=== PATIENT | female | born 1965 | race Caucasian/White ===

== ENCOUNTER → 2018-06-01 07:10 | Outpatient (CLI) | payer OTHER, SELFPAY ==
--- NOTE | 2018-06-01 07:15 | NM_ITS ---
History and Indications: Diabetes, hyperlipidemia, family history, shortness of breath, palpitations fatigue and abnormal EKG. Procedure: Patient exercised on Jairo protocol 6 metastases, resting heart rate was 85 bpm resting blood pressure 155/87, with exercise maximum heart rate achieved was 1 52 bpm which is greater than 85% of the maximum predicted heart rate and a blood pressure was 196/84. Test was stopped due to shortness of breath patient denied any complained of chest pain. Patient has adequate exercise capacity achieved 7.0mets of workload on treadmill, the blood pressure response to exercise was adequate. Electrocardiogram: Resting electrocardiogram showed sinus rhythm, with exercise there is less than 1.[address] segment depression noted from the baseline EKG. The EKG portion of the exercise Myoview is negative for ischemia. Cardiac stress and resting SPECT images: Cardiac stress and resting SPECT images were obtained using technetium 99 Myoview 31.4 mCi at stress and 10.1 mCi at rest. Gated SPECT further analysis of segmental wall motion and calculation of the ejection fraction also done. Cardiac stress and resting SPECT images show a mild fixed defect in the anterior wall with normal contractility in the gated SPECT is likely secondary to soft tissue attenuation, no reversible ischemia seen, computer derived ejection fraction is over 65% with no regional wall motion abnormality, right ventricle is normal size and contractility. Conclusion: 1. The EKG portion of the exercise Myoview is negative for ischemia, patient has adequate exercise capacity achieved 7mets of workload on treadmill, the blood pressure response to exercise was adequate, test was started due to shortness of breath patient denied any complained of chest pain. 2. No scintigraphic evidence of reversible ischemia seen at this level of exercise, computer derived ejection fraction is over 65% with no regional wall motion abnormality, right ventricle is normal size and contractility. 3. Normal exercise Myoview study.
--- NOTE | 2018-06-01 10:17 | HMH.ITSHM ---
fenofibrate metoprolol metformin spirivac omeprazole diazepam aspirin livalol loratadine
== END ==
PROVIDERS: PCP Family Medicine; Visit Provider Internal Medicine
DX: R07.9 Chest pain, unspecified (principal); R94.31 Abnormal electrocardiogram [ECG] [EKG]; C34.90 Malignant neoplasm of unspecified part of unspecified bronchus or lung; E11.9 Type 2 diabetes mellitus without complications; E78.5 Hyperlipidemia, unspecified; I10 Essential (primary) hypertension; J44.9 Chronic obstructive pulmonary disease, unspecified; K21.9 Gastro-esophageal reflux disease without esophagitis; R00.2 Palpitations; R06.00 Dyspnea, unspecified; R53.83 Other fatigue; Z87.891 Personal history of nicotine dependence; Z90.2 Acquired absence of lung [part of]; E11.8 Type 2 diabetes mellitus with unspecified complications; E78.4 Other hyperlipidemia; K44.9 Diaphragmatic hernia without obstruction or gangrene; R06.09 Other forms of dyspnea; R07.89 Other chest pain
CPT/HCPCS: 78452; 93017; A9502

== ENCOUNTER → 2019-06-21 10:01 | Outpatient (CLI) | payer OTHER, SELFPAY ==
--- NOTE | 2019-06-21 10:02 | CA_ITS ---
APPROVED REPORT EXAM: Comprehensive 2D, Doppler, and color-flow Echocardiogram Rack Puller: Jacquelyn Dozier RVT Ht: 5 ft 2 in Wt: 164lbs BSA: 1.76 BP: 134/78 mmHg Indications: MVP, COPD, Shortness of Breath, Diabetes, Palpitations, Fatigue, Hyperlipidemia, Hypertension 2D Dimensions LVOT 2.20 cm (M/F) 1.5-2.5 M-Mode Dimensions RVDd 2.50 cm (0.9-2.6) LA Diam 3.70 cm (1.9-4.0) LVDd 4.60 cm (3.5-5.7) Ao Diam 2.60 cm (2.0-3.7) LVDs 2.30 cm (3.5-5.7) AV Cusp 1.80 cm (1.5-2.6) IVSd 1.00 cm (0.6-1.1) PWd 0.80 cm (0.6-1.1) EF (Teich) 81.40% FS 50.00% EDV (Teich) 97.30 mL ESV (Teich) 18.10 mL LV Diastology E/A Ratio 1.0 MED E' 4.97 (< 7 cm/sec) E'/MED E' Ratio 20.30 (>14) LAT E' 9.16 (<10 cm/sec) E/LAT E' Ratio 11.00 (>14) Aortic Valve AoV Peak Omid. 117.00 (50-130 cm/s) AO Peak GR. 5.00 mmHg Mitral Valve MV E Max Omid. 101.00 (40-130 cm/s) MV A Velocity 102.00 (40-130 cm/s) E/A Ratio 1.00 Pulmonary Valve PA Accel Time 158.00 (>120 msec) Tricuspid Valve TR P. Velocity 229.00 cm/s Left Ventricle Left atrium is mildly enlarged, left ventricle is normal size, mild concentric left ventricular hypertrophy, visually estimated ejection fraction 55% with no regional wall motion abnormality, grade 1 diastolic dysfunction seen without tissue Doppler evidence of raise left atrial pressure. Right Ventricle Right atrium and right ventricular mildly enlarged with normal contractility. Aortic Valve Aortic valve is minimally thickened and fibrosed, there is no aortic stenosis aortic insufficiency. Mitral Valve Mitral valve is grossly normal, there is mild mitral regurgitation. Tricuspid Valve Tricuspid valve is grossly normal, there is mild tricuspid regurgitation, tricuspid regurgitation jet velocity is inadequate for calculation of the right ventricular systolic pressure. Pulmonic Valve Pulmonic valve is poorly visualized. Great Vessels Aortic root is normal size. Pericardium No significant pericardial effusion noted. Conclusion 1. Biatrial enlargement, normal left ventricular size, mild concentric left ventricular hypertrophy, visually estimated ejection fraction 55% with no regional wall motion abnormality, grade 1 diastolic dysfunction seen without tissue Doppler evidence of raise left atrial pressure. 2. Mildly enlarged right ventricle with normal contractility. 3. Mild mitral and tricuspid regurgitation 4. No significant pericardial effusion noted. Electronically signed by : Gerhard Nunez, 06/21/2019 14:23:17
== END ==
PROVIDERS: PCP Family Medicine; Visit Provider Nurse Practitioner Family
DX: I10 Essential (primary) hypertension (principal); I34.1 Nonrheumatic mitral (valve) prolapse; R53.83 Other fatigue
CPT/HCPCS: 93306

== ENCOUNTER → 2020-09-09 07:50 | Outpatient (CLI) | payer OTHER, SELFPAY ==
--- NOTE | 2020-09-09 | CA_ITS ---
APPROVED REPORT Exam: Exercise Treadmill Technologist: Flora Dominguez, Ht: 5 ft 2 in Wt: 168 lbs BSA: 1.78 m2 HR: 91 bpm BP: 149/88 mmHg Rhythm: NSR,LOW VOLTAGE QRS Medical History Medical History: HTN, Hyperlipidemia, Diabetic ??? Noninsulin Medications: Omeprazole,,,,, Metoprolol,,,,, Asa,,,,, Metformin,,,,, Diazepam,,,,, SyMBICORT,,,,, Tramadol,,,,, Calcium,,,,, Famotidine,,,,, FeNOfibrate,,,,, LoraTADINE,,,,, Ezetimbe,,,,, Cardiac Risk Factors: HTN, Hyperlipidemia, Diabetes (non-insulin), FHX of CAD Stress Test Details Test: Jairo HR Resting HR: 101 bpm Max Heart Rate (APMHR): 164 bpm Max HR Achieved: 140 bpm Target HR (85% APMHR): 139 bpm % of APMHR: 85 Recovery HR: 123 bpm BP Resting BP: 149.0/88.0 mmHg Max BP: 190.0/94.0 mmHg Recovery BP: 190.0/84.0 mmHg ECG Resting ECG: NSR,LOW VOLTAGE QRS Clinical Exercise duration: 05:30 min Highest Stage Achieved: Exercise capacity: 7.0 METs Stress ECG Conclusion PATIENT EXERCISED TO EXHAUSTION WHICH WAS 5:30 ON JAIRO PROTOCOL. MAX HEART RATE 140 BPM WHICH IS 85% OF PM FOR AGE. MAX BP 190/84. METS = 7.0. TEST STOPPED DUETO SOA. NO CHEST PAIN. RARE FUSION BEAT. NORMAL ST RESPONSE TO EXERCISE. NORMAL GXT. MYOVIEW IMAGES REPORTED SEPARATELY. Test Summary REST . . . . . . . Standing REST . . . . . . . Sitting REST 05:43 0.0 0.0 101 . 149/ 88 . . Stage 1 01:00 10.0 1.7 113 . . . . Stage 1 02:00 10.0 1.7 120 . . . . Stage 1 03:00 10.0 1.7 123 . 190/ 94 . . Stage 2 01:00 12.0 2.5 133 . . . . Stage 2 . . . . . . . Cardiolite injected Stage 2 02:00 12.0 2.5 139 . . . . Stage 2 02:30 12.0 2.5 139 . . . Stop exercise at 05:30 RECOVERY 01:00 0.0 0.0 122 . 190/ 84 . . RECOVERY 02:00 0.0 0.0 112 . 190/ 84 . . RECOVERY 03:00 0.0 0.0 101 . 139/ 78 . . RECOVERY 04:00 0.0 0.0 99 . 132/ 77 . . RECOVERY 05:00 0.0 0.0 96 . 130/ 80 . . RECOVERY 05:18 0.0 0.0 102 . 130/ 80 . . Electronically signed by : Gerhard Nunez, 09/10/2020 12:28:26
--- NOTE | 2020-09-09 07:50 | NM_ITS ---
APPROVED REPORT Exam: Nuclear Stress Test Indication: HTN, D.M., FM HX, C.P., SOB, PALPITATIONS, ABN EKG Patient Location: Outpatient Stress Tech: Era Dominguez [place] Tech:Sylvia Mann, ARRT RT (R)(N)(M) Ht: 5 ft 2 in Wt: 168 lbs Bra Size: C HR: 91 bpm BP: 149/88 mmHg BSA: 1.78 m2 BMI: 30.7 History: HTN, D.M., FM HX, C.P., SOB, PALPITATIONS, ABN EKG Procedure: Patient exercised on Jairo protocol 5:30 minutes and sec, resting heart rate 91 bpm, resting blood pressure 149/88 mmHg, with exercise maximum heart rate achived was 140 bpm which is 85 % of the maximum predicted heart rate and blood pressure was 199/94 mmHg. Test was stopped due to SOB, FATIGUE. Patient denied any complaint of chest pain. Patient has Adequate exercise capacity, achieved 7.0 METs of workload on treadmill, the blood pressure response to exercise was Adequate. Electrocardiogram Resting electrocardiogram showed sinus rhythm, with exercise there is less than 1.[address] segment depression noted from the baseline EKG. The EKG portion of the exercise Myoview is negative for ischemia. Cardiac Stress and Resting SPECT Images: Cardiac Stress and Resting SPECT images were obtained using technetium 99m Myoview 31.6 mCi stress and 10.44 mCi at rest. Gated SPECT for analysis of segmental wall motion and calculation of the ejection fraction also done. Prone images were also obtained. Cardiac stress and resting SPECT images show uniform myocardial activity without segmental perfusion abnormality, computer derived ejection fraction is over 65% with no regional wall motion abnormality, right ventricle is normal size and contractility. Conclusion: 1. The EKG portion of the exercise Myoview is negative for ischemia, patient has adequate exercise capacity achieved 7 mets of workload on treadmill, the blood pressure response to exercise was adequate, there was no exercise-induced chest discomfort. 2. No scintigraphic evidence of reversible ischemia seen, computer derived ejection fraction is over 65% with no regional wall motion abnormality, right ventricle is normal size and contractility. 3. Normal exercise Myoview study. Electronically signed by : Gerhard Nunez, 09/10/2020 12:32:11
[2020-09-09 12:16] LABS: Anion Gap 13.5 mEq/L (5-15); Blood Urea Nitrogen 18 mg/dl (7-17); Calcium 10.2 mg/dl (8.4-10.2); Carbon Dioxide 28 mmol/L (22.0-30.0); Chloride 100 mmol/L (98-107); Estimated Glomerular Filt Rate 74 ml/min (>60); GFR (African American) 90 ML/MIN (>60); Glucose 127 mg/dl (74-100); Potassium 4.5 mmoL/L (3.5-5.1); Sodium 137 mmol/L (136-145)
== END ==
PROVIDERS: PCP Family Medicine; Visit Provider Physician Assistant
DX: R07.9 Chest pain, unspecified (principal); R94.31 Abnormal electrocardiogram [ECG] [EKG]; C34.90 Malignant neoplasm of unspecified part of unspecified bronchus or lung; R53.83 Other fatigue; E11.69 Type 2 diabetes mellitus with other specified complication; E78.2 Mixed hyperlipidemia; I10 Essential (primary) hypertension; J44.9 Chronic obstructive pulmonary disease, unspecified; K21.9 Gastro-esophageal reflux disease without esophagitis; K44.9 Diaphragmatic hernia without obstruction or gangrene; Z90.2 Acquired absence of lung [part of]
CPT/HCPCS: 36415; 78452; 80048; 93017; A9502

== ENCOUNTER → 2021-09-16 10:41 | Outpatient (CLI) | payer OTHER, SELFPAY | PROVIDERS: Visit Provider Nurse Practitioner | DX: Z20.822 Contact with and (suspected) exposure to COVID-19 (principal) | CPT/HCPCS: C9803; U0003; U0005 ==

== ENCOUNTER → 2022-07-21 11:15 | Outpatient (CLI) | payer OTHER, SELFPAY ==
--- NOTE | 2022-07-21 | CA_ITS ---
APPROVED REPORT Exam: Pharmacologic Technologist: Genie Huber, Ht: 5 ft 2 in Wt: 168 lbs BSA: 1.78 m2 HR: 78 bpm BP: 139/83 mmHg Rhythm: NSR, low voltage QRS Indications: SOA Medical History Medications: Aspirin,,,,, Metoprolol,,,,, Metformin,,,,, Diazepam,,,,, Buspirone,,,,, Duoneb,,,,, Tramadol,,,,, Famotidine,,,,, JaRDiance,,,,, Ezetimibe,,,,, BREztri,,,,, FeNOfibrate nanocrystallized,,,,, Cardiac Risk Factors: HTN, Diabetes (non-insulin), Smoking Stress Test Details Test: LEXISCAN HR Resting HR: 88 bpm Max Heart Rate (APMHR): 162.622958 bpm Max HR Achieved: 102 bpm Target HR (85% APMHR): 137.846651 bpm % of APMHR: 62.96 Recovery HR: 90 bpm BP Resting BP: 139/83 mmHg Max BP: 157/91 mmHg Recovery BP: 150.0/88.0 mmHg ECG Resting ECG: NSR, low voltage QRS Clinical Exercise duration: 04:01 min Highest Stage Achieved: Exercise capacity: 1.0 METs Stress ECG Conclusion During lexiscan pt experinced mild SOA and mild head discomfort. No arrhythmias noted. No significant ST changes. Unremarkable lexiscan stress. Myoview images reported separately. Test Summary REST . . . . . . . Sitting REST 03:08 . . 88 . 139/ 83 . . Stage 1 01:00 . . 101 . . . . Stage 2 01:00 . . 97 . 151/ 91 . . Stage 3 01:00 . . 97 . 157/ 91 . . Stage 4 01:00 . . 95 . 155/ 96 . . Stage 4 01:01 . . 96 . 155/ 96 . Stop exercise at 04:01 RECOVERY 01:00 . . 93 . . . . RECOVERY 02:00 . . 84 . 150/ 88 . . RECOVERY 03:00 . . 90 . 135/ 87 . . RECOVERY 03:45 . . 91 . 150/ 90 . . Electronically signed by : Gerhard Nunez MD 07/22/2022 10:45:19
--- NOTE | 2022-07-21 11:16 | NM_ITS ---
APPROVED REPORT Exam: Nuclear Stress Test Indication: DM, FM HX, SOB, PALPITATIONS, FATIGUE Patient Location: Outpatient Stress Tech: Genie RODRIGUEZ Tech:Teresa Robert SCOTTYNasir RT(R)(N) Ht: 5 ft 2 in Wt: 170 lbs Bra Size: C HR: 88 bpm BP: 139/83 mmHg BSA: 1.78 m2 TID: 1.14 BMI: 31.0 History: DM, FM HX, SOB, PALPITATIONS, FATIGUE Procedure: Patient received a 0.4 mg of intravenous Lexiscan, resting heart rate 88 bpm, resting blood pressure 139/83 mmHg, with Lexiscan maximum heart rate achived was 101 bpm which is Less than 85 % of the maximum predicted heart rate and blood pressure was 151/91 mmHg. With Lexiscan, patient denied any complaint of chest pain. Electrocardiogram Resting electrocardiogram showed sinus rhythm, with Lexiscan there is less than 1.[address] segment depression noted from the baseline EKG. The EKG portion of the Lexiscan is nondiagnostic. Cardiac Stress and Resting SPECT Images: Cardiac Stress and Resting SPECT images were obtained using technetium 99m Myoview 30.4 mCi stress and 10.12 mCi at rest. Gated SPECT for analysis of segmental wall motion and calculation of the ejection fraction also done. Cardiac stress and resting SPECT images show uniform myocardial activity without segmental perfusion abnormality, computer derived ejection fraction is over 65% with no regional wall motion abnormality, right ventricle is normal size and contractility. Conclusion: 1. The EKG portion of the Lexiscan is nondiagnostic. 2. No scintigraphic evidence of reversible ischemia seen, computer derived ejection fraction over 65% with no regional wall motion abnormality, right ventricle is normal size and contractility. 3. Normal Lexiscan Myoview study. Electronically signed by : Gerhard Nunez MD 07/22/2022 10:47:47
== END ==
PROVIDERS: PCP Family Medicine; Visit Provider Nurse Practitioner
DX: R06.00 Dyspnea, unspecified (principal); R07.9 Chest pain, unspecified; I10 Essential (primary) hypertension; E78.2 Mixed hyperlipidemia
CPT/HCPCS: 78452; 93017; A9502; J2785

== ENCOUNTER → 2023-01-17 12:34 | Outpatient (CLI) | payer OTHER, SELFPAY ==
--- NOTE | 2023-01-17 12:42 | XR_ITS ---
FINAL REPORT CLINICAL HISTORY: TWISTED ANKLE 2WKS AGO,BRUISING FINDINGS: RIGHT ANKLE: 3 views of the right ankle were obtained. There is no acute fracture or dislocation. There is a small to moderate Ashley deformity. The mortise is intact. There is soft tissue swelling about the ankle, particularly laterally. IMPRESSION: Soft tissue swelling with no acute fracture Reviewed, Interpreted and Dictated by Jarvis Andrew MD Transcribed by Janay Phoenix Authenticated and [facility]
== END ==
PROVIDERS: PCP Family Medicine; Visit Provider Family Medicine
DX: M25.572 Pain in left ankle and joints of left foot (principal)
CPT/HCPCS: 73600

== ENCOUNTER → 2023-07-20 09:47 | Outpatient (CLI) | payer OTHER, SELFPAY | PROVIDERS: PCP Family Medicine; Visit Provider Internal Medicine | DX: R06.00 Dyspnea, unspecified (principal); R00.2 Palpitations; I10 Essential (primary) hypertension; E78.5 Hyperlipidemia, unspecified; E11.9 Type 2 diabetes mellitus without complications | CPT/HCPCS: 93270 ==

== ENCOUNTER → 2023-08-29 09:38 | Outpatient (CLI) | payer OTHER, SELFPAY ==
--- NOTE | 2023-08-29 09:38 | CA_ITS ---
APPROVED REPORT EXAM: Comprehensive 2D, Doppler, and color-flow Echocardiogram Online Editor: Cristiana Case CRT Ht: 5 ft 2 in Wt: 163lbs BSA: 1.75 BP: 148/88 mmHg Indications: COPD, Shortness of Breath, Diabetes, Palpitations, Fatigue, Hyperlipidemia, Hypertension/HDD, SVT 2D Dimensions Left Atrium 3.83 cm LA Volume 19.70 mL LVOT 1.89 cm (M/F) 1.5-2.5 LA Volume Index 11.30 mL/m2 (M/F) 16-34 EF AP4 62.10 % GL Strain -18.6 % M-Mode Dimensions RVDd 2.47 cm (0.9-2.6) LVDd 4.40 cm (3.5-5.7) Ao Diam 3.35 cm (2.0-3.7) LVDs 2.81 cm (3.5-5.7) IVSd 1.48 cm (0.6-1.1) PWd 0.80 cm (0.6-1.1) EF (Teich) 66.00% FS 36.10% EDV (Teich) 87.70 mL TAPSE 1.91 (<1.7) ESV (Teich) 29.80 mL LV Diastology E Decel Time 189 (160-240 msec) E/A Ratio 0.86 MED E' 6.2 (>= 7 cm/sec) MED A' 9.50 cm/s E'/MED E' Ratio 13.66 (<= 14) LAT E' 6.5 (>= 10 cm/sec) LAT A' 9.40 cm/s E/LAT E' Ratio 13.03 (<= 14) Aortic Valve AoV Peak Omid. 121.0 (50-130 cm/s) AO Peak GR. 5.90 mmHg Mitral Valve MV E Max Omid. 85.0 (40-130 cm/s) MV A Velocity 98.0 (40-130 cm/s) E/A Ratio 0.86 MV Decel. Time 189 (160-240 ms) Tricuspid Valve TR P. Velocity 220.00 cm/s RAP Estimate 10.00 mmHg RVSP 29.30 mmHg Left Ventricle The left ventricle is normal size. The left ventricular systolic function is normal. The left ventricular ejection fraction is within the normal range. There is normal left ventricular wall thickness. There is normal LV segmental wall motion. The left ventricular diastolic function is normal. LVEF is 55%. Right Ventricle The right ventricle is normal size. The right ventricular systolic function is normal. Atria The left atrium size is normal. The right atrium size is normal. There is no Doppler evidence of interatrial shunt. Aortic Valve The aortic valve opens well. There is no aortic valvular stenosis. No aortic regurgitation is present. Mitral Valve The mitral valve is normal in structure. No evidence of mitral valve stenosis. There is no mitral valve regurgitation noted. Tricuspid Valve The tricuspid valve leaflets are thin and pliable. Trace tricuspid regurgitation. RVSP is 20-25 mmHg. Pulmonic Valve The pulmonary valve is normal in structure. Trace pulmonic regurgitation. Great Vessels The aortic root is normal in size. The ascending aorta is normal in size. IVC is normal in size and collapses >50% with inspiration. Pericardium There is no pericardial effusion. Other Information Study Quality: Fair Conclusion Normal biventricular systolic function. No significant valvular stenosis or regurgitation. Electronically signed by : Shelbi Rodriguez MD 08/30/2023 00:23:57
[2023-08-29 11:51] LABS: Blood Urea Nitrogen 11 mg/dl (7-17); Estimated Glomerular Filt Rate 86 ml/min (>60); GFR (African American) 104 ML/MIN (>60)
== END ==
PROVIDERS: Internal Medicine; PCP Family Medicine; Visit Provider Physician Assistant
DX: I47.29 Other ventricular tachycardia (principal); E78.2 Mixed hyperlipidemia; R06.02 Shortness of breath
CPT/HCPCS: 36415; 82565; 84520; 93306

== ENCOUNTER 2023-09-20 08:41 | Outpatient (CLI) | payer OTHER, SELFPAY ==
[2023-09-20] VITALS (11 sets, daily range): BP systolic 100–150; BP diastolic 63–95; PULSE 64–76; RESP 16–19; TEMP 36.6; O2SAT 95–99; BMI 29.6
--- NOTE | 2023-09-20 09:00 | CT_ITS ---
APPROVED REPORT Medical Geneticist: CLINICAL INDICATION Chest Pain TECHNIQUE Image Acquisition: A 128 slice MDCT scanner ([employer]moce[employer] View) was used for data acquisition. A noncontrast coronary calcium scan was performed. A CT attenuation threshold of 130 Hounsfield units (HU) was used for the detection of calcium in contiguous voxels of 1 sq mm in area to be counted as individual lesions. Bolus tracking in the ascending aorta with a threshold of 180 HU was performed. Immediately afterwards, ECG synchronized cardiac CT was then performed from the cardiac base to apex using retrospective gating with ECG tube current modulation. A total of 85 mL of Isovue 370 mg/mL contrast medium was administered at 5 mL/sec followed by a saline flush using a biphasic injection protocol. A tube voltage of 120 KVp was used. The patient received the following medications prior to the cardiac CT. 100 mg of oral metoprolol 5 mg of intravenous metoprolol 0.8 mg of sublingual nitroglycerin The average heart rate at the time of acquisition was 72 bpm and regular. Image Reconstruction Transaxial images were reconstructed at 0.67 mm slide thickness. Data was reviewed interactively on an advanced workstation capable of 2 and 3-dimensional displays in all conventional reconstruction formats, including multiplanar reformations, maximum intensity projections, curved multiplanar reformations, and volume rendered reconstructions. When applicable, selected routine images describing the relevant coronary anatomy and pathology were saved and sent to PACS. Complications None Technical Quality Overall image quality was suboptimal due to significant motion. Additional HR-controlling medications could not be administered due to marginal BPs. Coronary artery opacification was suboptimal. Total DLP (Dose-Length Product) is 1205.4 mGy-cm. The reported value represents the total of one or more individual components during the CT acquisition of this date and at this time, and as such, the same value may appear in more than one CT report depending on the interpreting/reporting physicians. COMPARISON None FINDINGS CT Coronary Calcium Scoring LMA (Left Main Artery) = 0 LAD (Left Anterior Descending) = 18 LCX (Left Coronary Circumflex) = 81 RCA (Right Coronary Artery) = 209 Total Calcium Score = 308 using the AJ-130 method. The observed calcium score of 308 is at 86th percentile for subjects of the same age, sex, and race/ethnicity. The interpretation of the calcium heart score is based on the following continuum*: 0 = no calcified plaque detected (risk of coronary artery disease is very low ??? less than 5%) 1-10 = calcium detected in extremely minimal levels (risk of coronary diseases is still low ??? less than 10%) 11-100 = mild levels of plaque detected with certainty (mild or minimal narrowing of heart arteries is likely) 101-400 = definite,at least moderate levels of plaque detected (relatively high risk of a heart attack within 3-5 years) >401-999 = extensive levels of plaque detected (high risk of heart attack, high levels of vascular disease are present, high likelihood of at least one significant coronary narrowing) *The calcium heart score quantifies the burden of coronary calcification/plaque in the coronary arteries. The calcium heart score is not able to evaluate the presence or burden of non-calcified (i.e. soft) plaque. There is no identifiable calcification in the aortic valve, mitral annulus or mitral valve, pericardium, or myocardium. Coronary CT Angiography The coronary arterial system is right dominant. Quantitative Stenosis Grading: Left Main (LM): The left main originates normally from the left sinus of Valsalva. The LM bifurcates into the left anterior descending artery and left circumflex artery. The LM is patent with no evidence of atherosclerosis. Left Anterior Descending (LAD) and Diagonal Branches: The LAD gives off 3 diagonal branches. There is a mixed calcified/non-calcified plaque in the mid-LAD, involving the ostial second diagonal branch, with approximately 70-90% luminal stenosis. There is no evidence of LAD bridge. Left Circumflex (LCX) and Obtuse Marginals (OM): The LCX gives off 1 Obtuse Marginal (OM) branch. There is calcified plaque along the course of the LCX, but without significant luminal stenosis. Right Coronary Artery (RCA): The RCA originates normally from the right sinus of Valsalva. The RCA gives off a posterior descending artery (PDA) and posterolateral (PL) branches. There are multiple foci of mixed calcified/non-calcified plaque, with up to 50-70% luminal stenosis in the proximal segment. Of note, there is a segment in the mid-RCA that is not well visualized due to significant motion. Non-Coronary Cardiac Findings: Analysis of the left ventricular (LV) structure and function was performed after 3-D reconstruction of the LV from axial images, with user-corrected automatic contouring for assessment of LV volumes and user-defined reconstruction from oblique planes for measurement of 3-D cardiac structure and function. LVEDV: 113 mL LVESV: 41 mL SV: 72 mL LVEF: 63.5% -The left ventricle is normal in size with normal left ventricular systolic function. -There is no left atrial appendage filling defect. Two right pulmonary veins and two left pulmonary veins drain normally into the left atrium. -No pericardial thickening or calcification. -Central and branch pulmonary arteries in the [id number] are unremarkable. -Thoracic aorta within the visualized thoracic aortic-branches in the [id number] is unremarkable. Extracardiac Structures No significant extra-cardiac findings. IMPRESSION -Suboptimal study due to significant motion. -Presence of coronary calcification with an Agatston score = 308 using the AJ-130 method. -The observed calcium score of 308 is at 86th percentile for subjects of the same age, sex, and race/ethnicity. -Significant and likely flow-limiting atherosclerosis in the mid-LAD/D2 segment and the proximal RCA. -Of note, there is a segment in the mid-RCA that is not well visualized due to significant motion. -CAD-RADS 4A. Management recommendations per ACC/AHA guidelines*, as clinically appropriate. -No significant non-coronary cardiac findings in the visualized segments of the chest. *Recommendations: CAD RADS 0: Reassurance. Consider non-atherosclerotic causes of chest pain. CAD RADS 1: Consider non-atherosclerotic causes of chest pain. Consider preventive therapy and risk factor modification. CAD RADS 2: Consider non-atherosclerotic causes of chest pain. Consider preventive therapy and risk factor modification, particularly for patients with nonobstructive plaque in multiple segments. CAD RADS 3: Consider further functional testing. Consider symptom-guided anti-ischemic and preventive pharmacotherapy as well as risk factor modification per published guideline statements. CAD RADS 4A: Consider further functional testing or invasive coronary angiography with revascularization per published guideline statements. Consider symptom-guided anti-ischemic and preventive pharmacotherapy as well as risk factor modification per published guideline statements. CAD RADS 4B: Invasive coronary angiography recommended with revascularization per published guideline statements. Consider symptom-guided anti-ischemic and preventive pharmacotherapy as well as risk factor modification per published guideline statements. CAD RADS 5: Consider invasive angiography and/or viability assessment with revascularization per published guideline statements. Consider symptom-guided anti-ischemic and preventive pharmacotherapy as well as risk factor modification per published guideline statements. CRITICAL RESULT None COMMUNICATION Per this written report The coronary and cardiac findings of this CCTA were reviewed, reported, and signed by Jim Rodriguez MD ([employer]ipsaw Operator) Conclusion Electronically signed by : Shelbi Rodriguez MD 09/27/2023 12:34:30
[2023-09-20] MEDS: METOPROLOL TARTRATE 50MG TABLET 100 MG PO (09:20)
[2023-09-20 09:34] LABS: POC Glucose,Bedside 131 (70-110)
--- NOTE | 2023-09-20 09:45 | PC.NURSE ---
0924 when going over patient allergies, she stated that her Nurse at [facility] says that contrast makes her itch. Patient does not recall this. she states she is not allergic to contrast. verified with Blanche HAWKINS whom stated to go with what patient states and if she has any issues to call for further orders.
[2023-09-20] MEDS: METOPROLOL TARTRATE 5MG/5ML VIAL 5 MG IV (10:23)
[2023-09-20] MEDS: NITROGLYCERIN 0.4MG SL TABLET 0.800000000000000044 MG SL (10:46)
[2023-09-20] MEDS: SODIUM CHLORIDE 0.9% 10ML SYR (RAD ONLY) 10 ML IV (11:28)
[2023-09-20] MEDS: IOPAMIDOL-370 (76%);100ML BOTTLE 85 ML IV (11:28)
[2023-09-20] MEDS: 0.9 % SODIUM CHLORIDE 50 ML VIAL IV (11:28)
== END 2023-09-20 12:03 | disposition home or self-care (01) ==
PROVIDERS: PCP Family Medicine; Visit Provider Physician Assistant
DX: I47.29 Other ventricular tachycardia (principal); R94.31 Abnormal electrocardiogram [ECG] [EKG]
CPT/HCPCS: 75571; 75574; 82962; Q9967

== ENCOUNTER 2023-10-04 08:21 | Day surgery (SDC) | payer OTHER, SELFPAY ==
[2023-10-04] VITALS (14 sets, daily range): BP systolic 90–176; BP diastolic 62–101; PULSE 66–81; RESP 17–20; TEMP 36.9; O2SAT 91–96; BMI 29.8
--- NOTE | 2023-10-04 07:13 | IR_ITS ---
APPROVED REPORT Patient Location: Outpatient Physiotherapy Assistant: PEDRO Rodriguez RT (R) PROCEDURES Left heart catheterization Left ventriculogram Selective coronary angiogram INDICATION Abnormal Myoview, Angina pectoris Informed consent was obtained prior to the procedure. COMPLICATIONS NONE Estimated Blood Loss: LESS THAN 10 ML TECHNIQUE One percent lidocaine used to anesthetize the right anterior aspect of the wrist. The right radial artery was accessed via the Seldinger technique. A 6 Belgian sheath was placed in the right radial artery. 2.5 mg of Verapamil, 800 mcg of nitroglycerin, 1mg Lidocaine and 5000 U Heparin were given through the arterial sheath. The papa catheter was also used to perform left heart catheterization, left ventriculogram and selective coronary angiogram. At the end of the procedure the sheath was removed good hemostasis was achieved using Traclet band, patient was transferred to the postop holding area in stable condition. ANGIOGRAPHIC RESULTS The left main artery Normal The left anterior descending artery Has proximal to mid vessel 10 to 20% luminal irregularities directly adjacent to first diagonal artery which is widely patent. The remaining LAD is normal The circumflex artery Has proximal 10% luminal irregularities The right coronary artery Dominant with a mid vessel 20 to 30% stenosis The REINA ventriculogram reveals Normal 65% The left ventricular end-diastolic pressure 20 to 25 mmHg IMPRESSION Mild nonflow limiting coronary disease as described above Normal ejection fraction Elevated LVEDP consistent with HFpEF PLAN 1. Treatment of HFpEF with diuretics and weight loss as well as fluid restriction 2. Recommend sleep study Electronically signed by : Vinny Guerra MD 10/04/2023 10:20:42
[2023-10-04 08:58] LABS: Basophils # 0.1 K/mm3 (0-0.2); Basophils % 0.9 % (0.1-2.0); Eosinophils # 0.2 K/mm3 (0.0-0.4); Eosinophils % 3.5 % (0.1-12.0); Hematocrit 45.7 % (37.0-47.0); Hemoglobin 15.2 g/dL (12.2-16.2); Lymphocytes # 1.7 K/mm3 (0.7-4.5); Lymphocytes % 26.7 % (10-50); Mean Corpuscular HGB Conc 33.3 g/dL (31.8-35.4); Mean Corpuscular Hemoglobin 31.1 pg (27.0-31.2); Mean Corpuscular Volume 93.4 fl (81-99); Mean Platelet Volume 8.1 fl (7.4-10.4); Monocytes # 0.3 K/mm3 (0.1-1.0); Monocytes % 4.3 % (1.7-9.3); Neutrophils # 4.2 K/mm3 (1.8-7.8); Neutrophils % 64.6 % (37.0-80.0); Platelet Count 392 K/mm3 (142-424); Red Blood Count 4.89 M/mm3 (4.20-5.40); Red Cell Distribution Width 13.9 % (11.5-17.5); White Blood Count 6.5 K/mm3 (4.8-10.8)
[2023-10-04 09:08] LABS: Anion Gap 13.8 mEq/L (5-15); Blood Urea Nitrogen 11 mg/dl (7-17); Carbon Dioxide 26 mmol/L (22.0-30.0); Chloride 106 mmol/L (98-107); Creatinine Clearance Estimated 118 mL/min (50-200); Estimated Glomerular Filt Rate 102 ml/min (>60); GFR (African American) 124 ML/MIN (>60); Glucose 140 mg/dl (74-100); Potassium 3.8 mmoL/L (3.5-5.1); Sodium 142 mmol/L (136-145)
[2023-10-04] MEDS: diphenhydrAMINE 50MG/ML VIAL 50 MG IV (09:48)
[2023-10-04] MEDS: VERAPAMIL 2.5MG/ML 2ML VIAL 2.5 MG IV (09:48)
[2023-10-04] MEDS: NITROGLYCERIN 800MCG/8ML SYR (CATH LAB) 800 MCG IA (09:49)
[2023-10-04] MEDS: LIDOCAINE 1% 10ML MDV 20 ML IJ (09:49)
[2023-10-04] MEDS: HEPARIN 1,000 UNITS/500ML NS (CATH LAB) 3000 UNIT IV (09:52)
[2023-10-04] MEDS: 0.9 % SODIUM CHLORIDE 500 ML 25 ML IV (09:52)
[2023-10-04] MEDS: HEPARIN 1,000 UNITS/ML 10ML VIAL (CATH LAB) 10000 UNIT IV (10:12)
[2023-10-04] MEDS: MIDAZOLAM HCL 1MG/1ML 5ML VIAL 1 MG IV (10:12)
[2023-10-04] MEDS: FENTANYL 100MCG/2ML VIAL 50 MCG IV (10:13)
[2023-10-04] MEDS: IOPAMIDOL-370 (76%);100ML BOTTLE 50 ML IV (10:36)
== END 2023-10-04 13:15 | disposition home or self-care (01) ==
PROVIDERS: PCP Family Medicine; Visit Provider Internal Medicine
DX: R93.1 Abnormal findings on diagnostic imaging of heart and coronary circulation (principal); E11.9 Type 2 diabetes mellitus without complications; E78.5 Hyperlipidemia, unspecified; I11.0 Hypertensive heart disease with heart failure; R00.2 Palpitations; R06.00 Dyspnea, unspecified; Z79.899 Other long term (current) drug therapy; I25.118 Atherosclerotic heart disease of native coronary artery with other forms of angina pectoris; I50.30 Unspecified diastolic (congestive) heart failure
CPT/HCPCS: 80048; 85025; 93458; 99152; C1725; C1769; J1644; Q9967

== ENCOUNTER 2023-10-30 12:00 | Outpatient (CLI) | payer OTHER, SELFPAY ==
[2023-10-30 16:38] LABS: Anion Gap 12.1 mEq/L (5-15); Blood Urea Nitrogen 10 mg/dl (7-17); Calcium 9.6 mg/dl (8.4-10.2); Carbon Dioxide 25 mmol/L (22.0-30.0); Chloride 106 mmol/L (98-107); Estimated Glomerular Filt Rate 102 ml/min (>60); GFR (African American) 124 ML/MIN (>60); Glucose 128 mg/dl (74-100); Potassium 4.1 mmoL/L (3.5-5.1); Sodium 139 mmol/L (136-145)
== END 2023-10-30 23:59 ==
LOC: LAB 12:01
PROVIDERS: PCP Family Medicine; Visit Provider Physician Assistant
DX: E11.9 Type 2 diabetes mellitus without complications (principal); R06.00 Dyspnea, unspecified; I25.10 Atherosclerotic heart disease of native coronary artery without angina pectoris; I50.30 Unspecified diastolic (congestive) heart failure; E78.5 Hyperlipidemia, unspecified
CPT/HCPCS: 36415; 80048

== ENCOUNTER 2024-07-24 10:05 | Outpatient (CLI) | payer OTHER, SELFPAY ==
[2024-07-24 10:53] LABS: Anion Gap 13.3 mEq/L (5-15); Blood Urea Nitrogen 15 mg/dl (7-17); Calcium 9.6 mg/dl (8.4-10.2); Carbon Dioxide 26 mmol/L (22.0-30.0); Chloride 104 mmol/L (98-107); Estimated Glomerular Filt Rate 85 ml/min (>60); GFR (African American) 103 ML/MIN (>60); Glucose 137 mg/dl (74-100); Potassium 4.3 mmoL/L (3.5-5.1); Sodium 139 mmol/L (136-145)
== END 2024-07-24 23:59 | disposition home or self-care (01) ==
LOC: LAB 10:06
PROVIDERS: PCP Student in an Organized Health Care Education/Training Program; Visit Provider Physician Assistant
DX: I25.10 Atherosclerotic heart disease of native coronary artery without angina pectoris (principal); E78.2 Mixed hyperlipidemia; I10 Essential (primary) hypertension
CPT/HCPCS: 36415; 80048

== ENCOUNTER 2024-08-06 13:56 | Emergency (ER) | payer OTHER, SELFPAY ==
[2024-08-06 13:58] VITALS: BP 158/92; PULSE 84; RESP 18; TEMP 36.9; O2SAT 96; BMI 30.5
--- NOTE | 2024-08-06 14:05 | ED_ITS ---
<Statement entered by Jorge Luis Grant MD - 08/06/24 15:30> I was consulted by the DARVIN, and we discussed the complexity of problems being addressed. I approved the treatment and management plan for this patient's care in the emergency department, thus performing a substantial portion of the medical decision making. Patient still with difficulty ambulating after workup, she was provided crutches for ambulation and follow-up with podiatry. Jorge Luis Grant MD Discharge Plan Disposition Chief Complaint: Extremity Injury, Lower Prescriptions Prescriptions: No Action loratadine [Claritin] 10 mg tablet 10 mg PO DAILY PRN (Reason: allergies) fenofibrate nanocrystallized [Tricor] 145 mg tablet 145 mg PO DAILY aspirin 81 mg tablet,delayed release (DR/EC) 81 mg PO DAILY Patient Comments: TAKE 1 TABLET BY MOUTH ONCE DAILY. albuterol sulfate [Ventolin HFA] 90 mcg/actuation HFA aerosol inhaler 2 puff inhalation Q6H PRN Patient Comments: INHALE 2 PUFFS INTO THE LUNGS EVERY 6 HOURS NEEDED FOR WHEEZING Jardiance 10 mg tablet 10 mg PO DAILY Patient Comments: TAKE 1 TABLET BY MOUTH DAILY. spironolactone 25 mg tablet 25 mg PO DAILY Qty: 30 2RF ezetimibe [Zetia] 10 mg tablet 10 mg PO DAILY famotidine 20 mg tablet 20 mg PO BID Patient Comments: TAKE 1 TABLET BY MOUTH AT BEDTIME ipratropium-albuterol 18-103 mcg/actuation aerosol 1 spray INHALATION DAILY Breztri Aerosphere 160-9-4.8 mcg/actuation HFA aerosol inhaler 2 inh INHALATION BID duloxetine [Cymbalta] 20 mg capsule,delayed release(DR/EC) 20 mg PO Q OTHER DAY Dupixent Syringe 300 mg/2 mL syringe 300 mg SQ Q2W furosemide 20 mg tablet See Rx Instructions .ROUTE .COMPLEX Qty: 15 5RF Dose Instruction: Take 1 Tablet by mouth every other day. Rx Instructions: Take 1 Tablet by mouth every other day. metoprolol tartrate 100 mg tablet 100 mg PO BID Qty: 60 5RF diazepam [Valium] 2 tablet 2 mg PO DAILY Referrals Follow up/Referrals: Amira Tavarez DO [Primary Care Provider] - See instructions Christine Wilson DPM [Staff Physician] - See instructions Activity Restrictions/Add. Instructions Additional Instructions/Restrictions: You may bear weight as tolerated with crutches. Continue taking Tylenol every 8 hours. Please use rest ice compression elevation to help treat your injury. I have referred you to podiatry. Please call in the morning to make an appointment. Clinical Impressions Clinical Impression: Abrasion, left knee, initial encounter Right foot sprain Qualifiers: Encounter type: initial encounter Qualified Code(s): S93.601A - Unspecified sprain of right foot, initial encounter Instructions Patient Instructions: DI for Foot Sprain Print Language Print Language: [place] Discharge ED Provider: Jorge Luis Grant General Adult HPI <ROSS Awan - Last Filed: 08/06/24 15:13> General Chief complaint: Extremity Injury, Lower Stated complaint: R foot pain ao also knee pain Time Seen by Provider: 08/06/24 14:05 History of Present Illness HPI narrative: Patient presents for evaluation of fall. Patient states that she stepped off of a wheelchair ramp injuring her right foot and left knee. She was initially able to ambulate on both lower extremities however as time passed her right foot became more more painful to bear weight on. She denies any numbness tingling or injuries to any other body part. She did not lose consciousness. Related Data Home Medications ?Medication ?Instructions ?Recorded ?Confirmed diazepam 2 mg tablet (Valium) 2 mg PO DAILY Anxiety 02/08/18 07/31/24 loratadine 10 mg tablet (Claritin) 10 mg PO DAILY PRN allergies 06/19/18 07/31/24 ezetimibe 10 mg tablet (Zetia) 10 mg PO DAILY 02/24/20 07/31/24 ipratropium 18 mcg-albuterol 103 1 spray inhalation DAILY 07/22/20 07/31/24 mcg/actuation aerosol inhaler fenofibrate nanocrystallized 145 145 mg PO DAILY 03/09/21 07/31/24 mg tablet (Tricor) budesonide 160 mcg-glycopyr 9 2 inh inhalation BID 11/02/21 07/31/24 mcg-formot 4.8 mcg/actuation HFA inhaler (Breztri Aerosphere) famotidine 20 mg tablet 20 mg PO BID 01/17/23 07/31/24 duloxetine 20 mg capsule,delayed 20 mg PO Q OTHER DAY 01/08/24 11/13/24 release (Cymbalta) albuterol sulfate 90 mcg/actuation 2 puff inhalation Q6H PRN 07/11/24 07/31/24 aerosol inhaler (Ventolin HFA) aspirin 81 mg tablet,delayed 81 mg PO DAILY 07/11/24 07/31/24 release empagliflozin 10 mg tablet 10 mg PO DAILY 07/11/24 07/31/24 (Jardiance) dupilumab 300 mg/2 mL subcutaneous 300 mg SQ Q2W 07/31/24 07/31/24 syringe (Dupixent) Previous Rx's ?Medication ?Instructions ?Recorded furosemide 20 mg tablet See Rx Instructions .Route 05/08/24 .COMPLEX #15 tabs spironolactone 25 mg tablet 25 mg PO DAILY #30 tabs 07/11/24 metoprolol tartrate 100 mg tablet 100 mg PO BID #60 tabs 08/02/24 Allergies Allergy/AdvReac Type Severity Reaction Status Date / Time hydrocodone (HYDROCODONE) Allergy Intermediate I-ITCHING Verified 07/31/24 10:28 mometasone furoate (From Allergy Intermediate I-HIVES Verified 07/31/24 10:28 NASONEX) NSAIDS (Non-Steroidal Allergy Intermediate I-ITCHING Verified 07/31/24 10:28 Anti-Inflamma (NSAIDS (NON-STEROIDAL ANTI-INFLAMMA) Sulfa (Sulfonamide Allergy Intermediate I-ITCHING Verified 07/31/24 10:28 Antibiotics) (SULFA (SULFONAMIDE ANTIBIOTICS)) nickel Allergy Unknown Verified 07/31/24 10:28 levofloxacin Allergy Verified 07/31/24 10:28 Peiegvo-ZQV-VbH Reductase Allergy Verified 07/31/24 10:28 Inhibitor PFSH <ROSS Awan - Last Filed: 08/06/24 15:13> [facility] Disclaimer: The information contained in this section may have been updated after the patient was seen, as this information can be updated by other users. Medical History Lung cancer Palpitations Diabetes mellitus Chest pain Dyspnea HTN (hypertension) Mitral valve prolapse Surgical History History of surgery on lower extremity History of hysterectomy Family History Other Family history of cancer Family history of diabetes mellitus type II Family history of hypertension Family history of myocardial infarction Social History Smoking Status: Never smoker alcohol intake: never substance use type: denies use current occupational status: employed and unemployed Travel in the last 8 weeks: None Other Medical History Have you received the Flu Vaccine for this season: No Have you received the Pneumonia Vaccine: No <ROSS Awan - Last Filed: 08/06/24 15:13> ROS Obtained: Yes Systems reviewed as appropriate & no additional complaints except as documented Physical Exam <ROSS Awan - Last Filed: 08/06/24 15:13> General General appearance: alert and in no apparent distress Respiratory Respiratory exam: Present normal lung sounds bilaterally Cardiovascular Cardiovascular exam: Present regular rate Neurological Exam Neurological exam: Present alert and oriented X3 Medical Decision Making <ROSS Awan - Last Filed: 08/06/24 15:13> Medical Records Screening: Per USPSTF and CDC recommendations, given the prevalence of disease in our region, it is our hospital?s policy to screen for HIV and viral Hepatitis for all patients aged 18 and over and those with ongoing risk factors. [place] Inquiry Pt receiving controlled substance: No Vital Signs: 08/06/24 13:58 08/06/24 14:31 Temperature 98.4 F Temperature Source Oral Pulse Rate 80 Pulse Rate [Right] 84 Respiratory Rate 18 Blood Pressure 125/83 Blood Pressure [Right Arm] 158/92 H Blood Pressure Mean [Right Arm] 114 02 Sat by Pulse Oximetry 96 91 L Oxygen Delivery Method Room Air Orders (Tests/Meds): ED MEDICATIONS Discontinued Medications Generic Name Dose Route Start Last Admin Trade Name Freq PRN Reason Stop Dose Admin Acetaminophen 1,000 mg 08/06/24 14:11 08/06/24 14:17 Acetaminophen 500mg Tab PO 08/06/24 14:12 1,000 mg ONCE ONE Administration ORDERS Category Date Time Status Ankle XR -Right minimum 3 Views [XR ankle RT min 3V] Exams 08/06/24 14:09 Completed Stat Foot XR right minimum 3 views [XR foot RT min 3V] Stat Exams 08/06/24 14:09 Completed Knee XR left 3 views [XR knee LT 3V] Stat Exams 08/06/24 14:09 Completed Medical Decision Narrative: In summary patient is a 58-year-old female who presents to the emergency department for evaluation of a fall. Patient is hemodynamically stable upon arrival, febrile. Physical exam is remarkable for swelling and ecchymosis across the top of her right foot with tenderness palpation in the arch but no palpable bony deformity. Patient has full range of motion at the ankle and the toes. She is neurovascular intact distally. Patient has a superficial abrasion over the patella of the left knee along with some small amount of ecchymosis but no joint effusion or palpable bony deformity. She is able to flex and extend at the knee without pain. She is neurovascular intact distally. The remainder of her exam reveals no obvious injury abrasions contusions tenderness. Differential diagnosis includes sprain versus fracture of the foot on the right and contusion versus possible fracture on the left knee etc. Initial workup will be conducted with plain film x-rays. Initial interventions include Tylenol only as patient cannot take NSAIDs. Initial workup reviewed by me shows that she has no acute bony injury. Upon repeat evaluation is still unable to bear weight. Given this patient is appropriate for discharge with crutches weightbearing as tolerated instructions and referral to podiatry for further evaluation and care <Jorge Luis Grant MD - Last Filed: 08/06/24 15:28> Vital Signs: 08/06/24 13:58 08/06/24 14:31 Temperature 98.4 F Temperature Source Oral Pulse Rate 80 Pulse Rate [Right] 84 Respiratory Rate 18 Blood Pressure 125/83 Blood Pressure [Right Arm] 158/92 H Blood Pressure Mean [Right Arm] 114 02 Sat by Pulse Oximetry 96 91 L Oxygen Delivery Method Room Air Orders (Tests/Meds): ED MEDICATIONS Discontinued Medications Generic Name Dose Route Start Last Admin Trade Name Freq PRN Reason Stop Dose Admin Acetaminophen 1,000 mg 08/06/24 14:11 08/06/24 14:17 Acetaminophen 500mg Tab PO 08/06/24 14:12 1,000 mg ONCE ONE Administration ORDERS Category Date Time Status Ankle XR -Right minimum 3 Views [XR ankle RT min 3V] Exams 08/06/24 14:09 Completed Stat Foot XR right minimum 3 views [XR foot RT min 3V] Stat Exams 08/06/24 14:09 Completed Knee XR left 3 views [XR knee LT 3V] Stat Exams 08/06/24 14:09 Completed Medical Decision Narrative: In summary patient is a 58-year-old female who presents to the emergency department for evaluation of a fall. Patient is hemodynamically stable upon arrival, febrile. Physical exam is remarkable for swelling and ecchymosis across the top of her right foot with tenderness palpation in the arch but no palpable bony deformity. Patient has full range of motion at the ankle and the toes. She is neurovascular intact distally. Patient has a superficial abrasion over the patella of the left knee along with some small amount of ecchymosis but no joint effusion or palpable bony deformity. She is able to flex and extend at the knee without pain. She is neurovascular intact distally. The remainder of her exam reveals no obvious injury abrasions contusions tenderness. Differential diagnosis includes sprain versus fracture of the foot on the right and contusion versus possible fracture on the left knee etc. Initial workup will be conducted with plain film x-rays. Initial interventions include Tylenol only as patient cannot take NSAIDs. Initial workup reviewed by me shows that she has no acute bony injury. Upon repeat evaluation is still unable to bear weight. Given this patient is appropriate for discharge with crutches weightbearing as tolerated instructions and referral to podiatry for further evaluation and care Critical Care <ROSS Awan - Last Filed: 08/06/24 15:13> Critical Care Time Critical Care Time: No
--- NOTE | 2024-08-06 14:09 | XR_ITS ---
PROCEDURE INFORMATION: Exam: XR Left Knee Exam date and time: 08/06/2024 2:12 PM Age: 58 years old Clinical indication: Injury or trauma; Fall; Blunt trauma; Knee; Left TECHNIQUE: Imaging protocol: Radiologic exam of the left knee. Views: 3 views. COMPARISON: CR XR ANKLE LT 2V 01/17/2023 12:44 PM FINDINGS: Bones/joints: No evidence of acute fracture or malalignment. No significant knee joint effusion. Soft tissues: Unremarkable. IMPRESSION: No evidence of acute osseous abnormality in the left knee.
--- NOTE | 2024-08-06 14:09 | XR_ITS ---
PROCEDURE INFORMATION: Exam: XR Right Ankle Exam date and time: 08/06/2024 2:12 PM Age: 58 years old Clinical indication: Injury or trauma; Fall; Blunt trauma; Ankle; Right TECHNIQUE: Imaging protocol: Radiologic exam of the right ankle. Views: 3 or more views. COMPARISON: CR XR ANKLE RT MIN 3V 08/06/2024 2:12 PM FINDINGS: Bones/joints: No evidence of acute fracture or malalignment. Ankle mortise appears intact. Chronic post-traumatic degenerative changes noted at the distal medial and lateral malleoli. Soft tissues: Unremarkable. IMPRESSION: No evidence of acute osseous abnormality in the right ankle.
--- NOTE | 2024-08-06 14:09 | XR_ITS ---
PROCEDURE INFORMATION: Exam: XR Right Foot Exam date and time: 08/06/2024 2:12 PM Age: 58 years old Clinical indication: Injury or trauma; Fall; Blunt trauma; Foot; Right TECHNIQUE: Imaging protocol: Radiologic exam of the right foot. Views: 3 or more views. COMPARISON: CR XR FOOT RT MIN 3V 08/06/2024 2:12 PM FINDINGS: Bones/joints: No evidence of acute fracture or malalignment. Lisfranc joint appears normal. Calcaneal enthesopathy. Soft tissues: Unremarkable. IMPRESSION: 1. No evidence of acute osseous abnormality in the right foot. 2. Calcaneal enthesopathy.
[2024-08-06] MEDS: ACETAMINOPHEN 500MG TAB 1000 MG PO (14:17)
[2024-08-06 14:31] VITALS: BP 125/83; PULSE 80; O2SAT 91
[2024-08-06 15:31] VITALS: BP 125/83; PULSE 67; RESP 18; TEMP 36.9; O2SAT 98
== END 2024-08-06 15:33 | disposition home or self-care (01) ==
LOC: ER 14:09
PROVIDERS: Emergency Provider Emergency Medicine; PCP Student in an Organized Health Care Education/Training Program
DX: S80.212A Abrasion, left knee, initial encounter (principal); S93.601A Unspecified sprain of right foot, initial encounter; M79.671 Pain in right foot; M25.562 Pain in left knee; W01.0XXA Fall on same level from slipping, tripping and stumbling without subsequent striking against object, initial encounter; Y93.89 Activity, other specified; Y92.9 Unspecified place or not applicable
CPT/HCPCS: 73562; 73610; 73630; 99283

== ENCOUNTER 2024-09-02 09:37 | Outpatient (CLI) | payer OTHER, SELFPAY ==
--- NOTE | 2024-09-02 09:44 | XR_ITS ---
FINAL REPORT CLINICAL HISTORY: Foot pain from fx COMPARISON: 08/06/2024 FINDINGS: RIGHT FOOT 3 views of the right foot were obtained. There is no acute fracture or dislocation. No residual fracture line is evident. There is severe hallux valgus deformity. A moderate-sized calcaneal spur is noted. Visualized joint spaces are normally aligned. Soft tissues are unremarkable. IMPRESSION: No acute bony abnormality. Reviewed, Interpreted and Dictated by Mikaela Gonzalez MD Transcribed by Rachael Khalil Authenticated and [facility]
[2024-09-02 11:56] LABS: Basophils # 0.1 K/mm3 (0-0.2); Basophils % 1.2 % (0.1-2.0); Eosinophils # 0.1 K/mm3 (0.0-0.4); Eosinophils % 1.9 % (0.1-12.0); Hematocrit 46.6 % (37.0-47.0); Hemoglobin 15.6 g/dL (12.2-16.2); Lymphocytes # 1.9 K/mm3 (0.7-4.5); Lymphocytes % 28.2 % (10-50); Mean Corpuscular HGB Conc 33.5 g/dL (31.8-35.4); Mean Corpuscular Hemoglobin 29.6 pg (27.0-31.2); Mean Corpuscular Volume 88.5 fl (81-99); Mean Platelet Volume 7.3 fl (7.4-10.4); Monocytes # 0.4 K/mm3 (0.1-1.0); Monocytes % 5.5 % (1.7-9.3); Neutrophils # 4.3 K/mm3 (1.8-7.8); Neutrophils % 63.2 % (37.0-80.0); Platelet Count 315 K/mm3 (142-424); Red Blood Count 5.26 M/mm3 (4.20-5.40); Red Cell Distribution Width 14.5 % (11.5-17.5); White Blood Count 6.7 K/mm3 (4.8-10.8)
[2024-09-02 12:23] LABS: Albumin Level 4.7 g/dl (3.5-5.0); Chloride 104 mmol/L (98-107)
[2024-09-02 12:24] LABS: Potassium 4.4 mmoL/L (3.5-5.1); Sodium 133 mmol/L (136-145)
[2024-09-02 12:26] LABS: Alanine Aminotransferase 44 U/L (12-78); Anion Gap 8.4 mEq/L (5-15); Aspartate Amino Transferase 38 U/L (14-36); Bilirubin,Unconjugated 0.2 mg/dL (0.0-1.1); Blood Urea Nitrogen 14 mg/dl (7-17); Carbon Dioxide 25 mmol/L (22.0-30.0); Estimated Glomerular Filt Rate 85 ml/min (>60); GFR (African American) 103 ML/MIN (>60); Total Protein,Serum 6.7 g/dl (6.3-8.2)
[2024-09-02 12:27] LABS: Alkaline Phosphatase 82 U/L (38-126); Bilirubin,Direct 0.4 mg/dl (0.0-0.4); Bilirubin,Indirect 0.2 mg/dL (0.0-0.9); Bilirubin,Total 0.6 mg/dl (0.2-1.3); Calcium 9.7 mg/dl (8.4-10.2); Chol/HDL Ratio 4.6 (1-3.5); Cholesterol 147 mg/dl (140-200); Glucose 118 mg/dl (74-100); HDL Cholesterol 32 mg/dl (40-60); Triglycerides 176 mg/dl (30-150); VLDL Cholesterol 35 mg/dL (0-40)
[2024-09-02 12:38] LABS: Direct LDL Cholesterol 97.48 mg/dL (100-129)
[2024-09-02 12:43] LABS: Free T4 (Free Thyroxine) 1.06 ng/dl (0.78-2.19)
[2024-09-02 12:58] LABS: Thyroid Stimulating Hormone 1.34 uIU/mL (0.465-4.68)
== END 2024-09-02 23:59 | disposition home or self-care (01) ==
PROVIDERS: PCP Student in an Organized Health Care Education/Training Program; Referring Provider Internal Medicine; Visit Provider Podiatrist
DX: M79.671 Pain in right foot (principal); M79.672 Pain in left foot; I11.0 Hypertensive heart disease with heart failure; I25.10 Atherosclerotic heart disease of native coronary artery without angina pectoris; I50.33 Acute on chronic diastolic (congestive) heart failure; E78.2 Mixed hyperlipidemia; R00.2 Palpitations; E11.69 Type 2 diabetes mellitus with other specified complication; Z79.84 Long term (current) use of oral hypoglycemic drugs
CPT/HCPCS: 73630; 80048; 80061; 80076; 83036; 83735; 84439; 84443; 85025

== ENCOUNTER 2024-11-04 09:32 | Outpatient (CLI) | payer OTHER, SELFPAY ==
--- NOTE | 2024-11-04 09:36 | XR_ITS ---
FINAL REPORT CLINICAL HISTORY: Right 5th met fracture COMPARISON: 09/02/2024 FINDINGS: AP, oblique and lateral views of the right foot were obtained. There is no acute fracture or dislocation. Hallux valgus deformity is unchanged. Multijoint degenerative disease is stable. Soft tissues are unremarkable. IMPRESSION: Stable degenerative/chronic changes without acute osseous abnormality of the right foot. Reviewed, Interpreted and Dictated by Nuria Escobar MD Transcribed by Keira Milan Authenticated and [facility]
== END 2024-11-04 23:59 | disposition home or self-care (01) ==
LOC: RAD 09:34
PROVIDERS: PCP Student in an Organized Health Care Education/Training Program; Visit Provider Podiatrist
DX: M79.671 Pain in right foot (principal); S92.354D Nondisplaced fracture of fifth metatarsal bone, right foot, subsequent encounter for fracture with routine healing
CPT/HCPCS: 73630

== ENCOUNTER 2025-03-03 14:01 | Outpatient (CLI) | payer OTHER, SELFPAY ==
--- OUTSIDE RECORDS SUMMARY | 2025-03-03 14:04 | XMS_ITS | Clinical Summary ---
Author Organization [facility] Address [facility] [place] [id number] Care Team Providers Care Crisis Nurse Name Role Phone Era Diggs MD Primary Care Provide r Unavailable Family History Medical History Relation Name Comments COPD Mother Depression Mother Diabetes Mother Heart disease Mother Hypertension Mother Heart attack Sister 1 Diabetes Sister 2 Diabetes Sister 3 Heart disease Sister 4 Heart disease Sister 5 Conversions - Other Sister 6 Other Sp ecified Family Circumstances Cervical cancer Sister 7 Family histo ry of malignant neoplasm of cervix Relation Name Status Comments Mother Sister 1 Sister 2 Sister 3 Sister 4 Sister 5 Sister 6 Sister 7 Social History Tobacco Use Types Packs/Day Years Used Date Smoking Tobacco: Former Alcohol Use Standard Drinks/Week Comments Not Currently 0 (1 standard drink = 0.6 oz pure alcohol) Alcoholic Drinks/day: Stopped Drinking Alcohol Comments Unknown Sex and Gender Information Value Date Recorded Sex Assigned at Not on file Legal Sex Female 5:58 PM EDT Gender Identity Not on file Sexual Orientation Not on file Last Filed Vital Signs Vital Sign Reading Time Taken Comments Blood Pressure - - Pulse - - Temperature - - Respiratory Rate - - Oxygen Saturation - - Inhaled Oxygen Concentration - - Weight 66.7 kg (147 lb) 10/27/2014 1:58 PM EST Height 157.5 cm (5' 2 ) 10/27/2014 1:58 PM EST Body Mass Index 26.89 10/27/2014 1:58 PM EST Plan of Treatment Not on file Insurance [employer] [facility] MED[employer] Care Teams Crisis Nurse Relationship Specialty Start Date End Date Era Diggs MD PCP - General 08/16/21
--- OUTSIDE RECORDS SUMMARY | 2025-03-03 14:04 | XMS_ITS | Clinical Summary ---
Author Organization [facility] Address [address] [place] [id number] Care Team Providers Care Funeral Prearrangement Counselor Name Role Phone Era Campoverde MD Primary Care Provi giles Unavailable Source Comments This information has been disclosed to you from confidential records protectedfrom disclosure by state law. You shall make no further disclosure of thisinformation without the specific, written, and informed release of theindividual to whom it pertains, or as otherwise permitted by law. A generalauthorization for the release of medical or other information is not sufficientfor the purposes of therelease of HIV test results or diagnoses. [id number] Allergies Active Allergy Reactions Criticality Noted Date Comments Sulfa (Sulfonamide Antibiotics) 10/19 Medications METOPROLOL SUCCINATE ORAL Take by mouth. Active nebulizers Misc Use as directed. Active ATORVASTATIN CALCIUM (LIPITOR ORAL) Take by mouth. Active OMEPRAZOLE (PRILOSEC ORAL) Take by mouth. Active Social History Tobacco Use Types Packs/Day Years Used Date Smoking Tobacco: Unknown Comments Unknown Sex and Gender Information Value Date Recorded Sex Assigned at Not on file Legal Sex Female 8:55 PM EST Gender Identity Not on file Sexual Orientation Not on file Plan of Treatment Not on file Insurance [place] [id number] [employer] [facility] Care Teams Funeral Prearrangement Counselor Relationship Specialty Start Date End Date Era Campoverde MD PCP - General Family Medicine 11/02/16
[2025-03-03 14:28] LABS: Basophils # 0.1 K/mm3 (0-0.2); Basophils % 1.1 % (0.1-2.0); Eosinophils # 0.2 Kmm3 (0.0-0.4); Hematocrit 47.3 % (37.0-47.0); Hemoglobin 15.6 g/dL (12.2-16.2); Immature Granulocytes # 0.02 10^3uL; Immature Granulocytes % 0.3 %; Lymphocytes # 2.1 K/mm3 (0.7-4.5); Lymphocytes % 28.3 % (10-50); Mean Corpuscular Hemoglobin 29.8 pg (27.0-31.2); Mean Corpuscular Volume 90.4 fl (81-99); Mean Platelet Volume 9.8 fl (7.4-10.4); Monocytes # 0.4 K/mm3 (0.1-1.0); Monocytes % 5.9 % (1.7-9.3); Neutrophils # 4.6 K/mm3 (1.8-7.8); Neutrophils % 62.4 % (37.0-80.0); Nucleated Red Blood Cells # 0 10^3/uL; Nucleated Red Blood Cells % 0 %; Platelet Count 361 K/mm3 (142-424); Red Blood Count 5.23 M/mm3 (4.20-5.40); Red Cell Distribution Width 13.8 % (11.5-17.5); Red Cell Distribution Width-SD 45.7 fL; White Blood Count 7.4 K/mm3 (4.8-10.8)
[2025-03-03 14:44] LABS: Alanine Aminotransferase 40 U/L (12-78); Albumin Level 4.6 g/dl (3.5-5.0); Alkaline Phosphatase 73 U/L (38-126); Anion Gap 10.2 mEq/L (5-15); Aspartate Amino Transferase 33 U/L (14-36); Bilirubin,Direct 0.2 mg/dl (0.0-0.4); Bilirubin,Indirect 0.3 mg/dL (0.0-0.9); Bilirubin,Total 0.5 mg/dl (0.2-1.3); Bilirubin,Unconjugated 0.3 mg/dL (0.0-1.1); Blood Urea Nitrogen 14 mg/dl (7-17); Calcium 10.2 mg/dl (8.4-10.2); Carbon Dioxide 26 mmol/L (22.0-30.0); Chloride 105 mmol/L (98-107); Chol/HDL Ratio 4.6 (1-3.5); Cholesterol 155 mg/dl (140-200); Estimated Glomerular Filt Rate 85 ml/min (>60); GFR (African American) 103 ML/MIN (>60); Glucose 145 mg/dl (74-100); HDL Cholesterol 34 mg/dl (40-60); Potassium 4.2 mmoL/L (3.5-5.1); Sodium 137 mmol/L (136-145); Total Protein,Serum 6.8 g/dl (6.3-8.2); Triglycerides 165 mg/dl (30-150); VLDL Cholesterol 33 mg/dL (0-40)
[2025-03-03 14:55] LABS: Direct LDL Cholesterol 87.47 mg/dL (100-129)
[2025-03-03 15:00] LABS: Free T4 (Free Thyroxine) 1.03 ng/dl (0.78-2.19)
[2025-03-03 15:14] LABS: Thyroid Stimulating Hormone 1.16 uIU/mL (0.465-4.68)
== END 2025-03-03 23:59 | disposition home or self-care (01) ==
LOC: LAB 14:02
PROVIDERS: PCP Student in an Organized Health Care Education/Training Program; Visit Provider Internal Medicine
DX: I25.10 Atherosclerotic heart disease of native coronary artery without angina pectoris (principal); I10 Essential (primary) hypertension
CPT/HCPCS: 36415; 80048; 80061; 80076; 83735; 84439; 84443; 85025